=== PATIENT | male | born 1975 | race Caucasian/White ===

== ENCOUNTER 2020-07-25 10:38 | Emergency (ER) | payer OTHER, SELFPAY ==
[2020-07-25 10:47] VITALS: BP 103/59; PULSE 71; RESP 18; TEMP 36.9; O2SAT 100
--- NOTE | 2020-07-25 10:54 | ED.GENADULT ---
HPI - General Adult General Chief complaint: Upper Respiratory Infection Stated complaint: pos sinus infection/ear pain Source: patient Mode of arrival: ambulatory Limitations: no limitations History of Present Illness HPI narrative: Patient presents for evaluation of right ear pain for the last 3 weeks. He indicates hearing in the right ear is muffled and he has noted some drainage from the right ear. He further reports some pressure in the affected ear. He has a history of recurrent otitis media and acute bacterial rhinosinusitis. Reports sinus congestion and some postnasal drainage. Denies sore throat, cough, shortness of breath, fever, chills. He does not smoke. He has been using Flonase and Sudafed [id number] without much improvement. He works outdoors and states he has environmental allergies. In the past when he has had these symptoms, he has required abx therapy. Azithromycin does not work. No additional complaints or concerns Related Data Home Medications Medication Instructions Recorded Confirmed allopurinol 300 mg DAILY 07/25/20 07/25/20 Allergies Allergy/AdvReac Type Severity Reaction Status Date / Time No Known Allergies Allergy Verified 07/25/20 10:40 Review of Systems Review of Systems: Narrative: CONSTITUTIONAL: Denies fever, chills, or sweats. EYES: Denies visual changes, redness, or discharge. ENT: Reports right ear pain with muffled hearing. Reports sinus congestion, postnasal drainage. CARDIOVASCULAR: Denies chest pain, palpitations, or edema. RESPIRATORY: Denies cough or dyspnea. GASTROINTESTINAL: Denies abdominal pain, nausea, vomiting, or diarrhea. GENITOURINARY: Denies dysuria or hematuria. SKIN: Denies rash or itching. MUSCULOSKELETAL: Denies back pain, joint pain, or myalgia. NEUROLOGIC: Denies headache, numbness, dizziness, or weakness. PSYCHIATRIC: Denies anxiety or depression. [facility] Past Medical History Medical History (Updated 07/25/20 @ 11:02 by TARAN Barrios, KIERAN) Recurrent sinusitis Seasonal allergies Sinusitis Surgical History Surgical History S/P rotator cuff repair Family History Family History Father Diabetes mellitus Hypertension Mother Cervical cancer Social History Social History Smoking status: Never smoker Alcohol intake: current Alcohol use details: social ETOH use Substance use: never Exam Narrative: Exam Narrative: GENERAL: Well-appearing, well-nourished, and in no acute distress. HEAD: Normocephalic, atraumatic. EYES: PERRLA and EOMI. ENT: Nares clear, no rhinorrhea or epistaxis. Mucous membranes moist. Oropharynx without tonsillar hypertrophy exudate or other lesions. Scarring noted to left TM with middle ear fluid present. Right TM is completely opacified with associated erythema NECK: Supple. No adenopathy or masses. No carotid bruits or JVD CHEST: Clear to auscultation. No respiratory distress. No wheezes rales or rhonchi HEART: Regular rate and rhythm. No murmur heard. Normal peripheral pulses. ABDOMEN: Soft, nontender, nondistended, normal active bowel sounds. EXTREMITIES: Normal range of motion. No edema. SKIN: Warm, dry, no rash. NEURO: No focal deficits. Alert and oriented x3. PSYCH: Normal mood and affect. Course Course Emergency Course: This is a 44-year-old male that presents for ear pain and sinus symptoms for the last 3 weeks. Symptoms are refractory to OTC agents. He has a hx of recurrent ABRS and bacterial sinusitis Vital Signs Vital signs: Vital Signs Temperature 36.9 C 07/25/20 10:47 Pulse Rate 71 07/25/20 10:47 Respiratory Rate 18 07/25/20 10:47 Blood Pressure 103/59 L 07/25/20 10:47 Pulse Oximetry 100 07/25/20 10:47 Temperature 36.9 C 07/25/20 10:47 Pulse Rate 71 07/25/20 10
== END 2020-07-25 11:12 | disposition home or self-care (01) ==
PROVIDERS: Emergency Provider Nurse Practitioner; PCP Internal Medicine
DX: J32.9 Chronic sinusitis, unspecified (principal); H66.91 Otitis media, unspecified, right ear
CPT/HCPCS: 99213; G0463

== ENCOUNTER 2023-10-29 09:17 | Emergency (ER) | payer OTHER, SELFPAY ==
[2023-10-29 09:30] VITALS: BP 140/82; PULSE 83; RESP 18; TEMP 36.3; O2SAT 100
--- NOTE | 2023-10-29 09:53 | ED.URI ---
HPI - URI/Sore Throat General Chief Complaint: Upper Respiratory Infection Stated Complaint: sinus pressure and drainage Time Seen by Provider: 10/29/23 09:43 Source: patient and RN notes reviewed Mode of arrival: ambulatory Limitations: no limitations History of Present Illness HPI Narrative: Patient presents today for a 2 week history of sinus pressure in discharge, mild cough, rhinorrhea, and ear clogging. He has been taking Adele D, Mucinex, Flonase, and using a Neti pot with some short-term relief. Related Data Home Medications Medication Instructions Recorded Confirmed allopurinol 300 mg tablet 300 mg DAILY 07/25/20 10/29/23 Allergies Allergy/AdvReac Type Severity Reaction Status Date / Time No Known Allergies Allergy Verified 10/29/23 09:35 Review of Systems Review of Systems: CONSTITUTIONAL: Denies body aches, fever, chills, or sweats. EYES: Denies visual changes, redness, or discharge. ENT: Denies sore throat, or otalgia.+ rhinorrhea, congestion, ear clogging CARDIOVASCULAR: Denies chest pain, palpitations, or edema. RESPIRATORY: Denies dyspnea.+ cough GASTROINTESTINAL: Denies abdominal pain, nausea, vomiting, or diarrhea. GENITOURINARY: Denies dysuria or hematuria. SKIN: Denies rash, itching, or wounds. MUSCULOSKELETAL: Denies back pain, joint pain, or myalgia. NEUROLOGIC: Denies headache, numbness, tingling, or weakness. PSYCH: Denies depression or anxiety. [facility] Past Medical History Medical History Recurrent sinusitis Seasonal allergies Sinusitis Surgical History Surgical History S/P rotator cuff repair Family History Family History Father Diabetes mellitus Hypertension Mother Cervical cancer Social History Social History Smoking status: Never smoker Alcohol intake: current Alcohol use details: social ETOH use Substance use: never Comments At time of signature, I have reviewed and agree with nursing past medical, surgical, social and family history unless otherwise noted. Please see nursing chart for further information. There is no relevant family history pertinent to the presenting complaint Exam Narrative: GENERAL: Mildly ill-appearing, well-nourished, and in no acute distress. HEAD: Normocephalic, atraumatic. EYES: EOMI. No redness or drainage. Conjunctivae normal. ENT: Mucous membranes pink and moist. Nares congested. No rhinorrhea. Right TM mildly erythematous and dull with loss of landmarks. Left TM with mild serous effusion. Bilateral nasal turbinates are erythematous and edematous. Throat normal. Uvula midline. NECK: Normal AROM. Supple. No lymphadenopathy. CHEST: No respiratory distress. Clear to auscultation. HEART: Regular rate and rhythm. No murmur appreciated. Normal peripheral pulses. EXTREMITIES: Normal range of motion. No edema. SKIN: Warm, dry, no rash. Capillary refill normal. Normal skin turgor. NEURO: No focal deficits. Alert and oriented x3. Gait steady. PSYCH: Normal affect. No signs of depression or anxiety. Course Course Level of Care: Express Care Visit Vital Signs Vital signs: Vital Signs Temperature 97.3 F L 10/29/23 09:30 Pulse Rate 83 10/29/23 09:30 Respiratory Rate 18 10/29/23 09:30 Blood Pressure 140/82 10/29/23 09:30 Pulse Oximetry 100 10/29/23 09:30 Oxygen Delivery Room Air 10/29/23 09:30 Temperature 97.3 F L 10/29/23 09:30 Pulse Rate 83 10/29/23 09:30 Respiratory Rate 18 10/29/23 09:30 Blood Pressure 140/82 10/29/23 09:30 Pulse Oximetry 100 10/29/23 09:30 Oxygen Delivery Room Air 10/29/23 09:30 Reviewed MDM - URI/Sore Throat MDM Narrative Medical decision making narrative: Patient will be treated with amoxicil
== END 2023-10-29 10:00 | disposition home or self-care (01) ==
PROVIDERS: Emergency Provider Nurse Practitioner; PCP Internal Medicine
DX: H66.91 Otitis media, unspecified, right ear (principal); J01.90 Acute sinusitis, unspecified
CPT/HCPCS: 99213; G0463

== ENCOUNTER 2024-11-21 19:45 | Emergency (ER) | payer OTHER, SELFPAY ==
[2024-11-21 20:04] VITALS: BP 149/86; PULSE 87; RESP 16; TEMP 36.5; O2SAT 100
--- NOTE | 2024-11-21 20:44 | ED_ITS ---
HPI - Wound/Laceration General Chief Complaint: Wound/Laceration Stated Complaint: Cut Finger Time Seen by Provider: 11/21/24 20:20 Source: patient, RN notes reviewed and old records reviewed Mode of arrival: ambulatory Limitations: no limitations History of Present Illness HPI narrative: 49 year old male presents to express care with complaints of laceration to the right cervantes mid aspect of his index finger which occurred within the past hour prior to arrival. Patient reports that he cut his finger on a piece of metal on side of microwave when he was moving it. He reports that he rinsed finger well before coming to urgent care with no active bleeding noted at this time. Patient reports that his tetanus shot is not up to date. Onset (ago): hour(s) (within past hour prior to arrival) Location: other (right index finger) Patient tetanus UTD: No Treatments prior to arrival: other (rinsed well with water and bandage) Related Data Home Medications ?Medication ?Instructions ?Recorded ?Confirmed ?Last Taken ?Type allopurinol 300 mg tablet 300 mg DAILY 07/25/20 10/29/23 Unknown History Allergies Allergy/AdvReac Type Severity Reaction Status Date / Time No Known Allergies Allergy Verified 10/29/23 09:35 Review of Systems Review of Systems: CONSTITUTIONAL: Denies fever, chills, or sweats. CARDIOVASCULAR: Denies chest pain, palpitations, or edema. RESPIRATORY: Denies cough or dyspnea. SKIN: Reports laceration to right index finger mid cervantes aspect MUSCULOSKELETAL: Denies musculoskeletal pain NEUROLOGIC: Denies numbness, or weakness. All systems reviewed & are unremarkable except as noted in HPI and below PMFSH Past Medical History Medical History Gout Sinusitis Recurrent sinusitis Seasonal allergies Surgical History Surgical History S/P rotator cuff repair Family History Family History Father Diabetes mellitus Hypertension Mother Cervical cancer Social History Social History (Updated 11/23/24 @ 20:23 by Aimee Pelayo NP) Smoking status: Never smoker Alcohol intake: current Alcohol use details: social ETOH use Substance use: never Living arrangements: with family Gender identity (if verbalized by the patient): Male Comments At time of signature, agree with nursing past medical, surgical, social and family history. There is no relevant family history pertinent to the presenting complaint Exam Narrative: GENERAL: Well-appearing, well-nourished, obese and in no acute distress. HEAD: Normocephalic, atraumatic. NECK: Supple. no lymphadenopathy CHEST: Clear to auscultation. No respiratory distress SAO2 100% on room air. HEART: Regular rate and rhythm. No murmur heard. Normal peripheral pulses. EXTREMITIES: Normal range of motion. No edema. SKIN: Warm, dry, no rash. Reports 2cm linear laceration to the mid cervantes aspect of right index finger NEURO: No focal deficits. Alert and oriented x3. Course Course Level of Care: Express Care Visit Vital Signs Vital signs: Vital Signs Temperature 36.5 C 11/21/24 20:04 Pulse Rate 87 11/21/24 20:04 Respiratory Rate 16 11/21/24 20:04 Blood Pressure 149/86 H 11/21/24 20:04 Pulse Oximetry 100 11/21/24 20:04 Temperature 36.5 C 11/21/24 20:04 Pulse Rate 87 11/21/24 20:04 Respiratory Rate 16 11/21/24 20:04 Blood Pressure 149/86 H 11/21/24 20:04 Pulse Oximetry 100 11/21/24 20:04 reviewed Procedures Laceration cervantes mid aspect of index finger: Date: 11/21/24 Time: 20:44 Site: hand (index finger) Side (If applicable): right Size (cm): 2 Description: linear Depth: simple, single layer Local Anesthetic: lidocaine 1% Amount of anesthesia used (mL): 3 Pre-repair: wound explored, irrigated extensively and other (wound cleanser) ====== Skin Level ====== Skin layer closed with: nylon Size (cm): 4-0 Number of sutures: 4 Technique: simple, interrupted ====== Subcutaneous Layer ====== ====== Muscle Layer ====== ====== Tendon Layer ====== Dressing: right index finger laceration cleansed with wound care solution, wound explored and irrigated . Laceration site localized with Lidocaine 1% 3 ml and sutured with Ethilon 4.0 suture with 4 interrupted sutures applied to laceration. Wound cleansed with wound care solution and saline patted dry and triple antibiotic ointment and band-aide applied. MDM - Wound/Laceration MDM Narrative Medical decision making narrative: Wound explored for foreign body and copious irrigation provided with no evidence of FB. Discussed the potential of retained foreign body with the patient and signs/symptoms that should prompt the patient to immediately go to the ED for reevaluation. The wound was explored and no foreign bodies were found. There was no evidence of tendon or nerve lacerations. The wound was closed per procedure note. A sterile dressing was then applied and anticipatory guidance was provided. Tetanus prophylaxis was given with no reaction noted. Differential Diagnosis Differential diagnosis: Likely laceration, abrasion, avulsion of skin and other (laceration to right index finger) Medical Records Attestation: I reviewed the patient's medical records. Critical Care Time Critical Care Time Critical Care Time: No Discharge Plan Discharge Clinical Impression: Laceration of right index finger Qualifiers: Encounter type: initial encounter Damage to nail status: without damage Foreign body presence: without foreign body Qualified Code(s): S61.210A - Laceration without foreign body of right index finger without damage to nail, initial encounter Patient Disposition: Home, Self-Care Condition: Stable Instructions: Laceration (ED) Additional Instructions: Keep the area clean and dry No continuous water contact like dishes or swimming You may bathe and wash you hair caution with hair products or lotions Antibiotic ointment to the area 1 time daily use bacitracin ointment dressing of choice watch for infection--redness, swelling, drainage follow up with PCP for suture/staple in removal 10 days recheck with PCP if further concerns or problems If your symptoms persist, change or worsen significantly before you can contact your personal physician then please, without delay, go to the emergency department for further evaluation. Follow-up with PCP in 7-10 days or sooner if needed Follow up with PCP soon in regards to your blood pressure which is elevated above threshold for referral. Blood pressure above 120/80 may indicate pre- hypertension. Blood 149/86 Take antibiotic as prescribed Patient Language: Beninese Prescriptions: New cephalexin 500 mg capsule 500 mg PO Q12H Qty: 20 0RF No Action allopurinol 300 mg tablet 300 mg DAILY amoxicillin 875 mg tablet 875 mg PO Q12H 10 Days Qty: 20 0RF Follow-up/Referrals: PHYSICIAN,FOLDER MACHINE ADJUSTER [Primary Care Provider] - Time of Disposition: 21:18 Quality Mitchel Coma Scale Eyes: Open Verbal: Oriented and Alert Motor: Follows Commands Mitchel Coma Total Score: 15
[2024-11-21] MEDS: TETANUS,DIPHTHERIA,AC PERTUSSIS ADULT (0.5 ML) BOOSTRIX IM (21:02)
== END 2024-11-21 21:21 | disposition home or self-care (01) ==
PROVIDERS: Emergency Provider Registered Nurse
DX: S61.210A Laceration without foreign body of right index finger without damage to nail, initial encounter (principal); Z23 Encounter for immunization; W45.8XXA Other foreign body or object entering through skin, initial encounter
CPT/HCPCS: 12041; 90471; 90715; 99213; G0463